=== PATIENT | female | born 1930 | race Caucasian/White ===

== ENCOUNTER 2017-02-16 19:16 | Emergency (ER) | payer MEDICARE, OTHER ==
[~2017-02-16 19:16] MED LIST: ASPIRIN EC325 MG PO
[2017-02-16 20:57] LABS: HEMOGLOBIN 13.2 gm/dl (12.3-15.3); RED BLOOD COUNT 4.37 M/UL (4.00-5.10); WHITE BLOOD COUNT 4.8 K/UL (4.5-11.0)
[2017-02-16 21:27] LABS: BUN/CREATININE RATIO 26 (0-10)
== END 2017-02-17 00:15 | disposition home or self-care (01) ==
LOC: ER1 19:16
PROVIDERS: Emergency Medicine
DX: R06.00 Dyspnea, unspecified (principal); Z86.718 Personal history of other venous thrombosis and embolism
CPT/HCPCS: 36415; 80053; 82550; 82553; 83605; 83874; 83880; 84484; 85025; 85379; 85610; 85730; 87040; 93005; 96360; 99285; J7050; Q9963